=== PATIENT | male | born 1965 | race Caucasian/White ===

== ENCOUNTER → 2025-01-08 | Outpatient (CLI) | payer BC ==
--- NOTE | 2025-01-08 12:40 | NM ---
EXAMINATION TYPE: NM stress cardiolite complete DATE OF EXAM: 01/08/2025 COMPARISON: NONE CLINICAL INDICATION: Male, 59 years old with history of R07.9 chest pain, TECHNIQUE: After the intravenous administration of 10.51 mCi Tc 99m Sestamibi - Cardiolite resting S PECT images acquired 45 minutes post injection. At peak stress 25.4 mCi Tc 99m Sestamibi - Stress images obtained 35 minutes post injection The patient was stressed with 0.4mg Lexiscan. FINDINGS: No fixed defects are evident. There may be some mild diminished radiotracer on the anterior septal wall on stress which has normal appearance on resting images. Mild stress-induced ischemic change could be considered. Wall motion is normal. Ejection fraction is calculated to be 63 %. IMPRESSION: 1. There may be some mild stress-induced ischemic change along the anterior septal wall. 2. No additional areas suspicious for stress-induced ischemic change. 3. No prior infarcts evident. [facility], , 01/08/2025 12:37 PM
--- NOTE | 2025-01-08 19:52 | CA ---
Exercise Stress Test Report Name: Shyam Muniz Exam Date: 01/08/2025 10:06 Exam Location: [facility] Stress Ht (in): 68 Wt (lb): 195 BSA: 2.02 Ordering Phys: Man Wolfe MD Referring Phys: Shira Maravilla Technologist: LORETTA PARKER Age: 59 Gender: M : 1965 Procedure CPT: Indications: R07.9 CHEST PAIN ICD-10 Codes: Patient History: CHEST PAIN, PALPITATIONS, NUMBNESS IN FACE/NECK, CURRENT SMOKER (VAPE) AND PRIOR CIGARETTE SMOKER Medications: SUDAFED,,,,,, GUAFENESIN,,,,,, LOPREMIDE,,,,, Meds past 24 hrs: Pretest Chest Pain: STRESS TEST Fredo Protocol Exercise Duration (min:sec): 10:[address] Depressions (mm): 0 Angina Score: 0 Leigh Score: 10 Resting HR (bpm): 60 Peak HR (bpm): 149 Resting BP (mmHg): 143 / 84 Peak BP (mmHg): 214 / 78 MPHR: 163 Target HR: 139 % MPHR: 91 METS: 11.7 Total Dose: Peak Dose: Atropine: Double Product: 88424 BP Response: Stress Termination: MAX EXERTION/TARGET HR Stress Symptoms: NO SYMPTOMS Stress Summary: The patient's target heart rate was achieved ECG ANALYSIS Resting ECG: Sinus rhythm. Normal conduction. No arrhythmias. Normal repolarization. Stress ECG: No ECG evidence of ischemia with exercise. CONCLUSIONS Patient falls into low-risk group (DTS >= +5). This associates the patient with an annual CV mortality <= 0.5%. Good exercise tolerance with normal electrocardiographic response to exercise Nuclear images will be reported separately Dr. Augustine Elkins MD (Electronically Signed) Final Date: 08 January 2025 19:51
== END | disposition home or self-care (01) ==
LOC: RADNMMAIN 08:28
PROVIDERS: ATTEND Family Medicine
DX: I20.89 Other forms of angina pectoris (principal); F17.210 Nicotine dependence, cigarettes, uncomplicated
CPT/HCPCS: 93017; 78452; A9500

== ENCOUNTER 2025-01-21 18:09 | Observation (INO) | payer BC ==
[2025-01-21 18:40] LABS: Basophils # (A) 0.04 10*3/uL (0.00-0.10); Basophils % (A) 0.6 %; Eosinophils # (A) 0.21 10*3/uL (0.04-0.35); Eosinophils % (A) 3.0 %; HCT 42.4 % (39.6-50.0); HGB 15.2 g/dL (13.0-17.0); Lymphocytes # (A) 3.30 10*3/uL (0.90-5.00); Lymphocytes % (A) 47.4 %; MCH 31.3 pg (27.0-32.0); MCHC 35.8 g/dL (32.0-37.0); MCV 87.4 fL (80.0-97.0); Monocytes # (A) 0.64 10*3/uL (0.20-1.00); Monocytes % (A) 9.2 %; Neutrophils # (A) 2.76 10*3/uL (1.80-7.70); Neutrophils % (A) 39.7 %; Platelet Count 263 10*3/uL (140-440); RBC 4.85 10*6/uL (4.40-5.60); RDW 12.6 % (11.5-14.5); WBC 6.96 10*3/uL (4.50-10.00)
[2025-01-21 18:57] LABS: INR 1.0 (<1.2); Partial Thromboplastin Time 23.5 sec (22.0-30.0); Prothrombin Time 10.6 sec (10.0-12.5)
[2025-01-21 18:58] LABS: ALT 27 U/L (4-49); AST 25 U/L (17-59); African American GFR (CKD) >90 (>60 ml/min/1.73 sqM); Albumin 4.4 g/dL (3.5-5.0); Alkaline Phosphatase 61 U/L (38-126); Anion Gap 9 mmol/L; Blood Urea Nitrogen 11 mg/dL (9-20); Calcium 9.7 mg/dL (8.4-10.2); Carbon Dioxide 26 mmol/L (22-30); Chloride 105 mmol/L (98-107); Glucose 112 mg/dL (74-99); Magnesium 2.0 mg/dL (1.6-2.3); Non-African American GFR(CKD) 80 (>60 ml/min/1.73 sqM); Potassium 4.2 mmol/L (3.5-5.1); Sodium 140 mmol/L (137-145); Total Protein 7.1 g/dL (6.3-8.2)
--- NOTE | 2025-01-21 19:01 | ED ---
General Adult HPI - General Source: patient, RN notes reviewed Mode of arrival: ambulatory Limitations: no limitations <Letty Ruelas - Last Filed: 01/21/25 19:00> <Kristina Nichols - Last Filed: 01/24/25 13:03> - General Chief complaint: Chest Pain Stated complaint: Chest pain,L arm numbness Time Seen by Provider: 01/21/25 18:22 - History of Present Illness Initial comments: Quick [id number] male presents emergency department complaints of intermittent dull chest pain over the past month. He states that the past few days the pain is worsened with associated difficulty breathing with left hand radiation of pain. (Letty Ruelas) Patient is a 59-year-old man with a significant past medical history presented today for chest pain. Patient states over the last 3 months has had i ntermittent dull chest pressure in the middle of his chest. This morning he arrived home from a long drive from [place] and began feeling that chest pressure again with radiation down his left arm and associated left arm numbness. He then began experiencing tingling in his right fingertips. Denies associated diaphoresis or nausea. States it feels like "when you drink a pop too fast". Did feel short of breath at the time. No new lower extremity swelling. No fevers, chills, melena hematochezia. No first-degree relatives with history of ACS or strokes. No history of blood clots. Non-smoker. Had a recent workup by cardiology 2 weeks ago and states that he was told that there is plaques in his arteries (Kristina Nichols) - Related Data Home Medications Medication Instructions Recorded Confirmed Loperamide [Imodium] 16 mg PO DAILY 01/22/25 01/22/25 Omeprazole 20 mg PO DAILY 01/22/25 01/22/25 guaiFENesin [Mucinex] 900 mg PO DAILY 01/22/25 01/22/25 Previous Rx's Medication Instructions Recorded Acetaminophen Tab [Tylenol] 650 mg PO Q4HR PRN tab 01/22/25 Aspirin 81 mg PO DAILY #30 tab 01/22/25 Atorvastatin [Lipitor] 40 mg PO DAILY #30 tab 01/22/25 Nitroglycerin Sl Tabs [Nitrostat] 0.4 mg SUBLINGUAL Q5M PRN #10 tab 01/22/25 Allergies Allergy/AdvReac Type Severity Reaction Status Date / Time bee venom protein (honey bee) Allergy Swelling Verified 01/22/25 09:54 Review of Systems ROS Other: All systems not noted in ROS Statement are negative. <Letty Ruelas - Last Filed: 01/21/25 19:00> ROS Other: All systems not noted in ROS Statement are negative. <Kristina Nichols - Last Filed: 01/24/25 13:03> ROS Statement: Those systems with pertinent positive or pertinent negative responses have been documented in the HPI. Past Medical History Past Medical History: No Reported History History of Any Multi-Drug Resistant Organisms: None Reported Past Surgical History: Orthopedic Surgery Past Psychological History: No Psychological Hx Reported Smoking Status: Vaper Past Alcohol Use History: Occasional Past Drug Use History: None Reported <Letty Ruelas - Last Filed: 01/21/25 19:00> General Exam Limitations: no limitations <LizLetty castro - Last Filed: 01/21/25 19:00> <Kristina - Last Filed: 01/24/25 13:03> - General Exam Comments Initial Comments: Visual Physical Exam Vital signs reviewed General: Well-appearing, nontoxic, no acute distress. Head: Normocephalic, atraumatic Eyes: PERRLA, EOMI ENT: Airway patent Chest: Nonlabored breathing Skin: No visual rash, normal skin tone Neuro: Alert and oriented 3 Musculoskeletal: No gross abnormalities (Stieler,Letty) PE: CONSTITUTIONAL: [no apparent distress, well appearing] SKIN: [warm, dry, no jaundice, hives or petechiae] EYES:[ pupils are equally round, extraocular movements intact without nystagmus, clear conjunctiva, non-icteric sclera] HENT: [normocephalic, atraumatic, moist mucus membranes, oropharynx clear without exudates] NECK: , [Full range of motion, normal appearance] PULMONARY: [clear to auscultation without wheezes, rhonchi, or rales, normal excursion, no accessory muscle use and no stridor] CARDIOVASCULAR:[ regular rate, rhythm, normal S1 and S2. No appreciated murmurs, rubs or gallops. Strong radial pulses with intact distal perfusion. No lower extremity edema] GASTROINTESTINAL: [soft, active bowel sounds throughout, non-tender, non- distended, no palpable masses, no rebound or guarding. No hepatosplenomegaly] GENITOURINARY: MUSCULOSKELETAL: [Extremities have no gross deformity, no edema, redness, or swelling. No calf swelling ] NEUROLOGIC: [_a/o x 3, GCS 15, normal mentation and speech. Moves all extremities x 4 without motor or sensory deficit] PSYCHIATRIC:[ _normal mood and affect, thought process is clear and linear] (EnglishKristina) Course Vital Signs 01/21/25 01/22/25 01/22/25 18:16 00:55 01:01 Temperature 97.5 F L 98.5 F Pulse Rate 93 71 76 Respiratory 18 17 17 Rate Blood Pressure 160/98 147/94 145/96 O2 Sat by Pulse 97 98 100 Oximetry 01/22/25 06:01 Temperature Pulse Rate 58 L Respiratory 17 Rate Blood Pressure 138/73 O2 Sat by Pulse 97 Oximetry EKG Findings - EKG Comments: EKG Findings:: Sinus rhythm, rate 80 bpm, intervals within except limits, normal axis, no significant ST elevations or depressions no arrhythmia <Kristina - Last Filed: 01/24/25 13:03> Medical Decision Making - Lab Data Result diagrams: 01/21/25 18:30 01/21/25 18:30 <Letty Ruelas - Last Filed: 01/21/25 19:00> - Lab Data Result diagrams: 01/21/25 18:30 01/21/25 18:30 <Kristina Nichols - Last Filed: 01/24/25 13:03> - Medical Decision Making I completed the quick note portion of this chart signed Letty Ruelas PA-C (Letty Ruelas) Was pt. sent in by a medical professional or institution ([facility] Spear, DRUM OPERATOR, urgent care, hospital, or prison...) When possible be specific @ -No Did you speak to anyone other than the patient for history (EMS, parent, family, police, friend...)? What history was obtained from this source @ -No Did you review nursing and triage notes (agree or disagree)? Why? @ -I reviewed nursing and triage notes Were old charts reviewed (outside hosp., previous admission, EMS record, old EKG, old radiological studies, urgent care reports/EKG's, prison records)? Report findings @ -Medical records reviewed- Reviewed stress test from 01/08/2025, showed mild stress-induced ischemic changes along the anterior septal wall Differential Diagnosis (chest pain, altered mental status, abdominal pain women, abdominal pain men, vaginal bleeding, weakness, fever, dyspnea, syncope, headache, dizziness, GI bleed, back pain, seizure, CVA, palpatations, mental health, musculoskeletal)? @ -Differential Chest Pain: Stable Angina, Unstable Angina, STEMI, NSTEMI Aortic Dissection, pericarditis, pleurisy, chostochondirits, Pneumothorax, Musculoskeletal, Esophageal Spasm GERD, Cholecystitis, Pancreatitis, Zoster, this is not meant to be an all- inclusive list. EKG interpreted by me (3pts min.). @ -As above X-rays interpreted by me (1pt min.). @Reviewed chest x-ray, I see no signs of cardiomegaly, consolidations or pleural effusions CT interpreted by me (1pt min.). @ -None done U/S interpreted by me (1pt. min.). @ -None done What testing was considered but not performed or refused? (CT, X-rays, U/S, labs)? Why? CT PE study was considered however Wells score 0 and D-dimer 0.21. What meds were considered but not given or refused? Why? @Heparin infusion was considered however once patient was roomed his pain had resolved, troponin was not elevated, EKG did not show signs of STEMI Did you discuss the management of the patient with other professionals (professionals i.e. , PA, DRUM OPERATOR, lab, RT, psych nurse, socially responsible investment adviser, informatics nurse, teacher, tank officer, patient case manager)? Give summary @ -No Was smoking cessation discussed for >3mins.? @ -No Was critical care preformed (if so, how long)? no Were there social determinants of health that impacted care today? How? (Homelessness, low income, unemployed, alcoholism, drug addiction, transportation, low edu. Level, literacy, decrease access to med. care, prison, r ehab)? @ -No Was there de-escalation of care discussed even if they declined (Discuss DNR or withdrawal of care, Hospice)? @ -No What co-morbidities impacted this encounter? (DM, HTN, Smoking, COPD, CAD, Cancer, CVA, ARF, Chemo, Hep., AIDS, mental health diagnosis, sleep apnea, morbid obesity)? @ -None Was patient admitted / discharged? Hospital course, mention meds given and route, prescriptions, significant lab abnormalities, going to OR and other pertinent info. @ -Admission -Patient is a 59-year-old gentleman presenting today for intermittent left-sided chest pressure radiating down his left arm. Recent stress test with concerns findings concerning for anterior wall ischemia. Patient is initially seen and assessed by triage provider who ordered preliminary labs and imaging. Initial troponin was undetectable. On my assessment patient endorses only mild discomfort to his chest, left arm numbness has resolved. I obtained patient's permission to interview him and perform initial assessment in the hallway to which he was agreeable. Discussed with patient plan for admission due to recent stress test findings and persistent chest pain. He is agreeable w/ plan of care. Morphine, Zofran and aspirin were ordered. Patient was subsequently roomed and on my reassessment pain has resolved. D-dimer 0.21. Case was discussed with Ami QURESHI who kindly accepted patient for admission. Undiagnosed new problem with uncertain prognosis? @ -No Drug Therapy requiring intensive monitoring for toxicity (Heparin, Nitro, Insulin, Cardizem)? @ -No Were any procedures done? @ -No Diagnosis/symptom? @Chest pain, unstable angina Acute, or Chronic, or Acute on Chronic? @ -Acute Uncomplicated (without systemic symptoms) or Complicated (systemic symptoms)? @Complicated Side effects of treatment? @ -No Exacerbation, Progression, or Severe Exacerbation? @ -No Poses a threat to life or bodily function? How? (Chest pain, [place], [place], pneumonia, PE, COPD, DKA, ARF, appy, cholecystitis, CVA, Diverticulitis, Homicidal, Suicidal, threat to staff... and all critical care pts) @Potentially (Kristina Nichols) - Lab Data Lab Results 01/21/25 01/21/25 01/21/25 Range/Units 18:30 18:30 18:30 WBC 6.96 (4.50-10.00) 10*3/uL RBC 4.85 (4.40-5.60) 10*6/uL Hgb 15.2 (13.0-17.0) g/dL Hct 42.4 (39.6-50.0) % MCV 87.4 (80.0-97.0) fL MCH 31.3 (27.0-32.0) pg MCHC 35.8 (32.0-37.0) g/dL Plt Count 263 (140-440) 10*3/uL MPV 9.5 (9.5-12.2) fL Immature Gran % (Auto) 0.1 % Neutrophils % 39.7 % Lymphocytes % 47.4 % Monocytes % 9.2 % Eosinophils % 3.0 % Basophils % 0.6 % Immature Gran # 0.01 (0.00-0.04) 10*3/uL Neutrophils # 2.76 (1.80-7.70) 10*3/uL Lymphocytes # 3.30 (0.90-5.00) 10*3/uL Monocytes # 0.64 (0.20-1.00) 10*3/uL Eosinophils # 0.21 (0.04-0.35) 10*3/uL Basophils # 0.04 (0.00-0.10) 10*3/uL PT 10.6 (10.0-12.5) sec INR 1.0 (<1.2) APTT 23.5 (22.0-30.0) sec D-Dimer (<0.60) mg/L FEU Sodium 140 (137-145) mmol/L Potassium 4.2 (3.5-5.1) mmol/L Chloride 105 (98-107) mmol/L Carbon Dioxide 26 (22-30) mmol/L Anion Gap 9 mmol/L BUN 11 (9-20) mg/dL Creatinine 1.04 (0.66-1.25) mg/dL Est GFR (CKD-EPI)AfAm >90 (>60 ml/min/1.73 sqM) Est GFR (CKD-EPI)NonAf 80 (>60 ml/min/1.73 sqM) Glucose 112 H (74-99) mg/dL Estimated Ave Glu mg/dL mg/dL Hemoglobin A1c (<=6.0) % Calcium 9.7 (8.4-10.2) mg/dL Magnesium 2.0 (1.6-2.3) mg/dL Total Bilirubin 0.7 (0.2-1.3) mg/dL AST 25 (17-59) U/L ALT 27 (4-49) U/L Alkaline Phosphatase 61 (38-126) U/L Troponin I (0.000-0.034) ng/mL Total Protein 7.1 (6.3-8.2) g/dL Albumin 4.4 (3.5-5.0) g/dL 01/21/25 01/21/25 01/21/25 Range/Units 18:30 18:30 22:10 WBC (4.50-10.00) 10*3/uL RBC (4.40-5.60) 10*6/uL Hgb (13.0-17.0) g/dL Hct (39.6-50.0) % MCV (80.0-97.0) fL MCH (27.0-32.0) pg MCHC (32.0-37.0) g/dL Plt Count (140-440) 10*3/uL MPV (9.5-12.2) fL Immature Gran % (Auto) % Neutrophils % % Lymphocytes % % Monocytes % % Eosinophils % % Basophils % % Immature Gran # (0.00-0.04) 10*3/uL Neutrophils # (1.80-7.70) 10*3/uL Lymphocytes # (0.90-5.00) 10*3/uL Monocytes # (0.20-1.00) 10*3/uL Eosinophils # (0.04-0.35) 10*3/uL Basophils # (0.00-0.10) 10*3/uL PT (10.0-12.5) sec INR (<1.2) APTT (22.0-30.0) sec D-Dimer (<0.60) mg/L FEU Sodium (137-145) mmol/L Potassium (3.5-5.1) mmol/L Chloride (98-107) mmol/L Carbon Dioxide (22-30) mmol/L Anion Gap mmol/L BUN (9-20) mg/dL Creatinine (0.66-1.25) mg/dL Est GFR (CKD-EPI)AfAm (>60 ml/min/1.73 sqM) Est GFR (CKD-EPI)NonAf (>60 ml/min/1.73 sqM) Glucose (74-99) mg/dL Estimated Ave Glu mg/dL 114 mg/dL Hemoglobin A1c 5.6 (<=6.0) % Calcium (8.4-10.2) mg/dL Magnesium (1.6-2.3) mg/dL Total Bilirubin (0.2-1.3) mg/dL AST (17-59) U/L ALT (4-49) U/L Alkaline Phosphatase (38-126) U/L Troponin I <0.012 <0.012 (0.000-0.034) ng/mL Total Protein (6.3-8.2) g/dL Albumin (3.5-5.0) g/dL 01/21/25 Range/Units 22:10 WBC (4.50-10.00) 10*3/uL RBC (4.40-5.60) 10*6/uL Hgb (13.0-17.0) g/dL Hct (39.6-50.0) % MCV (80.0-97.0) fL MCH (27.0-32.0) pg MCHC (32.0-37.0) g/dL Plt Count (140-440) 10*3/uL MPV (9.5-12.2) fL Immature Gran % (Auto) % Neutrophils % % Lymphocytes % % Monocytes % % Eosinophils % % Basophils % % Immature Gran # (0.00-0.04) 10*3/uL Neutrophils # (1.80-7.70) 10*3/uL Lymphocytes # (0.90-5.00) 10*3/uL Monocytes # (0.20-1.00) 10*3/uL Eosinophils # (0.04-0.35) 10*3/uL Basophils # (0.00-0.10) 10*3/uL PT (10.0-12.5) sec INR (<1.2) APTT (22.0-30.0) sec D-Dimer 0.21 (<0.60) mg/L FEU Sodium (137-145) mmol/L Potassium (3.5-5.1) mmol/L Chloride (98-107) mmol/L Carbon Dioxide (22-30) mmol/L Anion Gap mmol/L BUN (9-20) mg/dL Creatinine (0.66-1.25) mg/dL Est GFR (CKD-EPI)AfAm (>60 ml/min/1.73 sqM) Est GFR (CKD-EPI)NonAf (>60 ml/min/1.73 sqM) Glucose (74-99) mg/dL Estimated Ave Glu mg/dL mg/dL Hemoglobin A1c (<=6.0) % Calcium (8.4-10.2) mg/dL Magnesium (1.6-2.3) mg/dL Total Bilirubin (0.2-1.3) mg/dL AST (17-59) U/L ALT (4-49) U/L Alkaline Phosphatase (38-126) U/L Troponin I (0.000-0.034) ng/mL Total Protein (6.3-8.2) g/dL Albumin (3.5-5.0) g/dL Disposition <Letty Ruelas - Last Filed: 01/21/25 19:00> <Kristina Nichols - Last Filed: 01/24/25 13:03> Clinical Impression: Unstable angina Disposition: ADMITTED IP TO THIS HOSP Condition: Stable
--- NOTE | 2025-01-21 19:18 | XR ---
EXAMINATION TYPE: XR chest 2V DATE OF EXAM: 01/21/2025 7:07 PM COMPARISON: None TECHNIQUE: XR chest 2V Frontal and lateral views of the chest. CLINICAL INDICATION:Male, 59 years old with history of Chest Pain; FINDINGS: Lungs/Pleura: There is no evidence of pleural effusion, focal consolidation, or pneumothorax. Pulmonary vascularity: Unremarkable. Heart/mediastinum: Cardiomediastinal silhouette is unremarkable. Musculoskeletal: Remote right lateral 10th rib fracture. No new definitive acute fracture. IMPRESSION: No acute cardiopulmonary disease/process. [facility], , 01/21/2025 7:15 PM
[2025-01-22] MEDS ORDERED: NITROGLYCERIN SL TABS 0.4 MG TAB SUBLINGUAL PRN ×2 (00:47→08:14)
[2025-01-22] MEDS ORDERED: ACETAMINOPHEN TAB 325 MG TAB PO PRN (00:47)
[2025-01-22] MEDS ORDERED: MORPHINE SULFATE 2 MG/ML SYRINGE IVP PRN (00:47)
[2025-01-22] MEDS: ASPIRIN 81 MG PO STA (00:57)
[2025-01-22] MEDS: ONDANSETRON 4 MG/2 ML VIAL IVP STA (00:58)
[2025-01-22 01:02] VITALS: RESP 17
[2025-01-22] MEDS: MORPHINE SULFATE 2 MG/ML SYRINGE IVP STA (06:05)
[2025-01-22] MEDS ORDERED: ALPRAZolam 0.25 MG TAB PO PRN (08:14)
[2025-01-22] MEDS ORDERED: ALPRAZolam 0.5 MG TAB PO PRN (08:14)
[2025-01-22] MEDS ORDERED: SODIUM CHLORIDE 0.9% 1,000 ML in EMPTY BAG 1 BAG IV SCH (08:15)
--- NOTE | 2025-01-22 09:54 | P.CRDCN ---
History of Present Illness History of present illness: HISTORY OF PRESENT ILLNESS: This is a 59-year-old male with no significant past medical history. However patient has not seen a doctor in 40 years. He also does not follow with a algebra tutor. We have been asked to see the patient in consultation for chest pain. Patient examined at the bedside. Patient states he has been having chest pain on and off for the past few weeks. He states the pain occurs in the middle of his chest. He denies any radiation of the pain. Denies any shortness of breath. He states that he recently got established with a PCP and was referred to see a algebra tutor. He states that 2 of his children are nurses and they have been pushing him to get evaluated. He denies any known history of CAD. He does not take any medications on an outpatient basis. 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 EKG completed on admission revealed sinus mechanism with no signs of acute ischemia. Troponins were negative x 4. Patient did undergo an outpatient Cardiolite stress test where he walked for 10 minutes on 01/08/2025 revealing some mild stress-induced ischemic changes along anterior septal wall. No additional areas for stress-induced ischemic changes. No prior infarct evident. REVIEW OF SYSTEMS: At the time of my exam: CONSTITUTIONAL: Denies fever or chills. HEENT: Denies blurred vision, vision changes, or eye pain. Denies hemoptysis CARDIOVASCULAR: Denies chest pain. Denies orthopnea. Denies PND. Denies palpitations RESPIRATORY: Denies shortness of breath. GASTROINTESTINAL: Denies abdominal pain. Denies nausea or vomiting. HEMATOLOGIC: Denies bleeding disorders. GENITOURINARY: Denies any blood in urine. SKIN: Denies pruitis. Denies rash. PHYSICAL EXAM: VITAL SIGNS: Reviewed. GENERAL: Well-developed in no acute distress. HEENT: Head is normocephalic. Pupils are equal, round. Sclerae anicteric. Mucous membranes of the mouth are moist. Neck supple. No JVD or thyromegaly LUNGS: Respirations even and unlabored. Lungs essentially clear to auscultation bilaterally. HEART: Regular rate and rhythm. S1 and S2 heard. ABDOMEN: Soft. Nondistended. Nontender. EXTREMITIES: Normal range of motion. No clubbing or cyanosis. Peripheral pulses intact. No lower extremity edema NEUROLOGIC: Awake and alert. Oriented x 3. ASSESSMENT: Chest pain, troponin negative x 4 Abnormal Cardiolite stress test revealing mild stress-induced ischemic changes along anterior septal wall PLAN: An acute coronary Venn has been ruled out Obtain 2D echo to assess cardiac structure and function Begin aspirin and atorvastatin Check lipid panel and hemoglobin A1c Patient to undergo cardiac catheterization today with Dr. Parra Further recommendations pending patient course Nurse practitioner note has been reviewed by physician. Signing provider agrees with the documented findings, assessment, and plan of care documented by POTATO CHIP SORTER as a scribe. Past Medical History Past Medical History: No Reported History History of Any Multi-Drug Resistant Organisms: None Reported Past Surgical History: Orthopedic Surgery Past Psychological History: No Psychological Hx Reported Smoking Status: Vaper Past Alcohol Use History: Occasional Past Drug Use History: None Reported Medications and Allergies Allergies Allergy/AdvReac Type Severity Reaction Status Date / Time bee venom protein (honey bee) Allergy Swelling Verified 01/21/25 18:19 Physical Exam Vitals: Vital Signs Temp Pulse Pulse Resp BP BP Pulse Ox 01/22/25 07:22 97.6 F 51 L 17 116/68 98 01/22/25 06:01 58 L 17 138/73 97 01/22/25 01:01 76 17 145/96 100 01/22/25 00:55 98.5 F 71 17 147/94 98 01/21/25 18:16 97.5 F L 93 18 160/98 97 Intake and Output 01/21/25 01/22/25 01/22/25 22:59 06:59 14:59 Other: Weight 88.451 kg Results 01/21/25 18:30 01/21/25 18:30 Cardiac Enzymes 01/21/25 01/21/25 01/21/25 Range/Units 18:30 18:30 22:10 AST 25 (17-59) U/L Troponin I <0.012 <0.012 (0.000-0.034) ng/mL 01/22/25 01/22/25 Range/Units 01:48 04:01 AST (17-59) U/L Troponin I <0.012 <0.012 (0.000-0.034) ng/mL Coagulation 01/21/25 Range/Units 18:30 PT 10.6 (10.0-12.5) sec APTT 23.5 (22.0-30.0) sec CBC 01/21/25 Range/Units 18:30 WBC 6.96 (4.50-10.00) 10*3/uL RBC 4.85 (4.40-5.60) 10*6/uL Hgb 15.2 (13.0-17.0) g/dL Hct 42.4 (39.6-50.0) % Plt Count 263 (140-440) 10*3/uL Comprehensive Metabolic Panel 01/21/25 Range/Units 18:30 Sodium 140 (137-145) mmol/L Potassium 4.2 (3.5-5.1) mmol/L Chloride 105 (98-107) mmol/L Carbon Dioxide 26 (22-30) mmol/L BUN 11 (9-20) mg/dL Creatinine 1.04 (0.66-1.25) mg/dL Glucose 112 H (74-99) mg/dL Calcium 9.7 (8.4-10.2) mg/dL AST 25 (17-59) U/L ALT 27 (4-49) U/L Alkaline Phosphatase 61 (38-126) U/L Total Protein 7.1 (6.3-8.2) g/dL Albumin 4.4 (3.5-5.0) g/dL Current Medications Generic Name Dose Route Start Last Admin Trade Name Freq PRN Reason Stop Dose Admin Acetaminophen 650 mg 01/22/25 00:47 Acetaminophen Tab 325 Mg Tab PO Q4HR PRN Pain Atorvastatin Calcium 40 mg 01/22/25 09:00 Atorvastatin 40 Mg Tab PO DAILY [facility] Heparin Sodium (Porcine) 5,000 unit 01/22/25 08:00 Heparin Sodium,Porcine 5,000 Unit/Ml 1 Ml Vial SQ Q8HR CURLY Nitroglycerin 0.4 mg 01/22/25 00:47 Nitroglycerin Sl Tabs 0.4 Mg Tab SUBLINGUAL Q5M PRN Chest Pain Intake and Output 01/21/25 01/22/25 01/22/25 22:59 06:59 14:59 Other: Weight 88.451 kg 01/21/25 18:30 01/21/25 18:30
[2025-01-22] MEDS: ASPIRIN 325 MG TAB PO STA (10:02)
[2025-01-22] MEDS: ATORVASTATIN 80 MG TAB PO STA (10:02)
[2025-01-22] MEDS: HEPARIN SODIUM,PORCINE 10,000 UNIT in SODIUM CHLORIDE 0.9% 1,000 ML IRRIGATION ONE (11:05)
[2025-01-22] MEDS: HEPARIN SODIUM,PORCINE (1 ML) 2,500 UNIT in SODIUM CHLORIDE 0.9% 250 ML IRRIGATION ONE (11:06)
[2025-01-22] MEDS: MIDAZOLAM 2 MG/2 ML VIAL IVP ONE ×2 (11:32→11:40)
[2025-01-22] MEDS: fentaNYL (PF) 50 MCG/1 ML VIAL IVP ONE ×2 (11:32→11:40)
[2025-01-22] MEDS: LIDOCAINE 2% (PF) 20 MG/ML 5 ML VIAL SQ ONE (11:32)
[2025-01-22] MEDS: VERAPAMIL 2.5 MG/ML 4 ML VIAL INTRAARTER ONE (11:33)
[2025-01-22] MEDS: HEPARIN SODIUM 1,000 UN/ML (10ML VL) IVP ONE (11:43)
[2025-01-22] MEDS: IOPAMIDOL-370 100ML BTL INTRATHECA ONE (11:56)
[2025-01-22] MEDS: SODIUM CHLORIDE 0.9% 1,000 ML IV ONE (11:57)
[2025-01-22] MEDS: ASPIRIN 81 MG PO SCH (11:59)
[2025-01-22] MEDS: HEPARIN SODIUM,PORCINE 5,000 UNIT/ML 1 ML VIAL SQ SCH (11:59)
[2025-01-22] MEDS: ATORVASTATIN 40 MG TAB PO SCH (12:00)
--- NOTE | 2025-01-22 12:30 | CC ---
CARDIAC CATHETERIZATION REPORT INDICATION: Unstable angina with abnormal stress test. PROCEDURE NOTE: After obtaining informed consent, left heart catheterization and coronary angiogram were performed with the right radial artery using standard Mai catheters. The patient tolerated the procedure well without any obvious immediate complications. Total sedation time was 15 minutes. The right radial artery access was obtained using Seldinger technique, 6-Greek sheath was placed. Catheters and wires were floated into the ascending aorta under fluoroscopic guidance. A TR band will be used for hemostasis. FINDINGS: 1. Hemodynamics: Left ventricular end-diastolic pressure is 14 mm. There is no significant gradient across the aortic valve. 2. Left ventriculogram: Left ventriculogram is not performed. 3. Angiographic data: a.Left main coronary artery: Left main coronary artery is a normal-sized vessel and is free of stenosis. Divides into left anterior descending coronary artery and circumflex coronary artery. LAD shows mild nonobstructive atherosclerotic plaque in its midportion. b.Circumflex coronary artery and its branches are free of significant stenosis. c.Right coronary artery is a large dominant vessel and is free of significant disease. CONCLUSIONS: Mild nonobstructive disease involving LAD. PLAN: The patient's management is going to be in the form of risk factor modification, lipid- lowering therapy, and aspirin. I discussed these issues with the patient. He understands and is in agreement with the plans. MMODL / IJN: [id number] /
[2025-01-22 12:39] VITALS: TEMP 97.3
--- NOTE | 2025-01-22 13:07 | CA ---
Transthoracic Echo Report Name: Shyam Muniz Age: 59 Gender: M : 1965 Exam Date: 01/22/2025 07:57 Exam Location: [facility] Ht (in): 68 Wt (lb): 195 Ordering Physician: Kristina Nichols MD Attending/Referring Phys: Microfiche Camera Operator Maurisio Nova RDCS Procedure CPT: Indications: CP, recent + stress test Cardiac Hx: Technical Quality: Fair Contrast 1: Total Dose (mL): Contrast 2: Total Dose (mL): MEASUREMENTS (Male / Female) Normal Values 2D ECHO LV Diastolic Diameter PLAX 5.5 cm 4.2 - 5.9 / 3.9 - 5.3 cm LV Systolic Diameter PLAX 3.6 cm IVS Diastolic Thickness 1.0 cm 0.6 - 1.0 / 0.6 - 0.9 cm LVPW Diastolic Thickness 1.0 cm 0.6 - 1.0 / 0.6 - 0.9 cm LV Relative Wall Thickness 0.4 RV Internal Dim ED PLAX 3.4 cm LVOT Diameter 1.9 cm Aortic Root Diameter 3.2 cm LA Systolic Diameter LX 3.2 cm 3.0 - 4.0 / 2.7 - 3.8 cm LV Diastolic Volume MOD 2C 86.3 cm??? LV Systolic Volume MOD 2C 32.8 cm??? LV Ejection Fraction MOD 2C 62.0 % LV Cardiac Index MOD 2C 1465.3 cm???/min???m??? LV Diastolic Length 2C 7.7 cm LV Systolic Length 2C 5.8 cm LA Volume 28.7 cm??? 18 - 58 / 22 - 52 cm??? LA Volume Index 13.8 cm???/m??? 16 - 28 cm???/m??? DOPPLER MV Area PHT 3.0 cm??? Mitral E Point Velocity 81.1 cm/s Mitral A Point Velocity 104.9 cm/s Mitral E to A Ratio 0.8 MV Deceleration Time 254.2 ms TR Peak Velocity 219.5 cm/s TR Peak Gradient 19.3 mmHg FINDINGS Left Ventricle Left ventricular ejection fraction is estimated at 60-65%. No obvious regional wall motion abnormalities. Left ventricular dilatation. Left ventricular wall thickness normal. Right Ventricle Normal right ventricular size and function. Right ventricular systolic pressure within normal limits Right Atrium Normal right atrial size. Left Atrium Normal left atrial size. Mitral Valve Mitral annular calcification. No mitral stenosis. Trace mitral regurgitation. Aortic Valve Trileaflet aortic valve. No aortic valve stenosis or regurgitation. Tricuspid Valve Structurally normal tricuspid valve. No tricuspid prolapse. No tricuspid stenosis. Trace tricuspid regurgitation. Pulmonic Valve Structurally normal pulmonic valve. No pulmonic stenosis. Trace pulmonic regurgitation. Pericardium No pericardial effusion. Aorta Normal size aortic root and proximal ascending aorta. CONCLUSIONS Normal left ventricular size wall motion and systolic function Previewed by: Dr. Mohan Parra MD (Electronically Signed) Final Date: 22 January 2025 13:06
[2025-01-22 17:04] VITALS: BP 143/88; PULSE 63
--- NOTE | 2025-01-22 22:06 | HP ---
HISTORY AND PHYSICAL This is a combined history and physical and discharge summary. CHIEF COMPLAINT: Chest pain. HISTORY OF PRESENT ILLNESS: This 59-year-old gentleman with a past medical history of multiple medical problems admitted with intermittent chest pain. The patient had a long drive from [place]. The patient had a CT angio. The patient is in normal D-dimer and the patient is being admitted for further evaluation and treatment, and a cardiac cath showed mild disease and the patient is being discharged per Cardiology. There is no history of fever, rigors, or chills. PAST MEDICAL HISTORY: Reviewed, DJKushal. MEDICATIONS: The home medications are Mucinex. Doses and rest of medications reviewed. ALLERGIES: Bee venom. FAMILY HISTORY: History of heart disease and strokes in the family. SOCIAL HISTORY: Occasional alcohol. Occasional vaping. REVIEW OF SYSTEMS: A 14-point review of systems negative except as mentioned earlier. PHYSICAL EXAMINATION: VITAL SIGNS: Pulse 66, blood pressure 144/80, and respirations 16. CHEST: Clear to auscultation. CARDIOVASCULAR: S1, S2. ABDOMEN: Soft. NERVOUS SYSTEM: Nonfocal. LABORATORY DATA: Noted. ASSESSMENT: 1. Chest pain, myocardial infarction ruled out, possibly nonspecific within normal cardiac cath. 2. History of vaping. 3. Elevated random glucose. RECOMMENDATIONS: This 59-year-old gentleman admitted after cardiac cath. I would recommend a CT angio chest to complete the workup. Otherwise, guarded prognosis because of multiple complex medical issues and the patient will be discharged with further plans to follow up with the primary physician after discharge. The patient the patient's primary care physician is Dr. Man Wolfe. See medication reconciliation sheet for list of medications. MMODL / IJN: [id number] /
[2025-01-23] MEDS ORDERED: HEPARIN SODIUM,PORCINE 10,000 UNIT in SODIUM CHLORIDE 0.9% 1,000 ML IRRIGATION PRN (07:00)
[2025-01-23] MEDS ORDERED: HEPARIN SODIUM,PORCINE (1 ML) 2,500 UNIT in SODIUM CHLORIDE 0.9% 250 ML IRRIGATION PRN (07:00)
== END 2025-01-22 16:00 | disposition home or self-care (01) ==
LOC: EC 18:09 → 6NMEDSUR 01-22 00:47 → 1SOBS 01-22 05:10
PROVIDERS: ADMIT Hospitalist; ATTEND Hospitalist
DX: R07.89 Other chest pain (principal); R73.9 Hyperglycemia, unspecified; I25.10 Atherosclerotic heart disease of native coronary artery without angina pectoris; R94.39 Abnormal result of other cardiovascular function study; M79.602 Pain in left arm; R20.2 Paresthesia of skin; R20.0 Anesthesia of skin; F17.290 Nicotine dependence, other tobacco product, uncomplicated; Z79.82 Long term (current) use of aspirin; Z79.899 Other long term (current) drug therapy; Z91.030 Bee allergy status; Z82.3 Family history of stroke; Z82.49 Family history of ischemic heart disease and other diseases of the circulatory system
CPT/HCPCS: 96374; 99285; 36415; 93005; 93306; 93458; 85379 ×2; 80053; 83735; 84484 ×2; 85025; 85610; 85730; 83036; 71046; G0378 ×2; C1769; C1894; J2250; J1644 ×3; J2405; Q9967; J2003; J3010